=== PATIENT | female | born 1995 | race African-American/Black ===

== ENCOUNTER 2018-06-22 09:51 | Emergency (ER) | payer SELFPAY ==
[2018-06-22 09:58] VITALS: BMI 40.7
[2018-06-22] MEDS ORDERED: SODIUM CHLORIDE 1,000 ML IV STA ×2 (10:54→14:22)
[2018-06-22] MEDS ORDERED: ONDANSETRON 4 MG/2 ML VIAL IVPUSH ONE (10:54)
--- NOTE | 2018-06-22 12:15 | PDOC ---
History of Present Illness - General History Source: Patient Exam Limitations: No Limitations - History of Present Illness Travel History: No Initial Comments: 06/22/18 12:05 23 y/o female presents to the ED with c/o n/v and poor solid intake x 4 days. Pt states is approx 6 weeks based on LMP. pt states had test done in office 2 weeks ago and has her 1st physician appt next monday. pt states has not had an ultrasound yet and now states has had lower abd cramping since this am, which prompted her to come to the ED. Pt denies urinary complaints, back pain, vag discharge or bleeding. Pt denies weakness, headache, or dizziness. Timing/Duration: reports: getting worse Quality: reports: mild, cramping Abdominal Pain Onset Location: reports: suprapubic Pain Radiation: reports: no radiation Activities at Onset: reports: none Aggravating Factors: improves with: None Alleviating Factors: improves with: None <Cait Mederos - Last Filed: 06/22/18 14:42> <Josette Phillip - Last Filed: 06/22/18 15:29> - General Chief Complaint: Nausea/Vomiting Stated Complaint: VOMITITNG 5WKS PG Time Seen by Provider: 06/22/18 10:34 Past History - Travel Traveled outside of the country in the last 30 days: No Close contact w/someone who was outside of country & ill: No - Past Medical History COPD: No - Immunization History Immunization Up to Date: Yes - Suicide/Smoking/Psychosocial Hx Smoking History: Never smoked Hx Alcohol Use: No Drug/Substance Use Hx: No Patient Lives Alone: No Lives with/in: parents <Cait Mederos - Last Filed: 06/22/18 14:42> <Josette Phillip - Last Filed: 06/22/18 15:29> - Past Medical History Allergies/Adverse Reactions: Allergies Allergy/AdvReac Type Severity Reaction Status Date / Time No Known Allergies Allergy Verified 06/22/18 09:54 Home Medications: Ambulatory Orders Cephalexin [Keflex] 500 mg PO BID #14 capsule 06/22/18 Ondansetron HCl [Zofran] 4 mg PO TID PRN #12 tablet 06/22/18 Review of Systems - Review of Systems Able to Perform ROS?: No Is the patient limited [place] proficient: No Constitutional: Yes: Loss of Appetite HEENTM: No: Symptoms Reported Respiratory: No: Symptoms reported Cardiac (ROS): No: Symptoms Reported ABD/GI: Yes: Nausea, Poor Appetite, Vomiting, Abdominal cramping. No: Indigestion : No: Symptoms Reported Musculoskeletal: No: Symptoms Reported Integumentary: No: Symptoms Reported Neurological: No: Symptoms reported <Cait Mederos - Last Filed: 06/22/18 14:42> *Physical Exam - Vital Signs Last Vital Signs Temp Pulse Resp BP Pulse Ox 98.5 F 58 L 18 129/80 97 06/22/18 09:54 06/22/18 09:54 06/22/18 09:54 06/22/18 09:54 06/22/18 09:54 - Physical Exam General Appearance: Yes: Nourished, Appropriately Dressed. No: Apparent Distress HEENT: positive: EOMI, CORTES, Pharynx Normal (dry appearing). negative: Pale Conjunctivae Neck: positive: Supple Respiratory/Chest: positive: Lungs Clear, Normal Breath Sounds. negative: Respiratory Distress, Accessory Muscle Use Cardiovascular: positive: Regular Rhythm, Regular Rate. negative: Murmur Female Pelvic Exam: positive: normal external exam (no discharge/bleeding) Gastrointestinal/Abdominal: positive: Soft, Tenderness (mild midsuprapubic) Musculoskeletal: negative: Normal Inspection Extremity: positive: Normal Capillary Refill Integumentary: positive: Normal Color, Warm, Moist Neurologic: positive: Normal Mood/Affect, Motor Strength 5/5 (ambulatory) <Cait Mederos - Last Filed: 06/22/18 14:42> - Vital Signs Last Vital Signs Temp Pulse Resp BP Pulse Ox 98.5 F 58 L 18 129/80 97 06/22/18 09:54 06/22/18 09:54 06/22/18 09:54 06/22/18 09:54 06/22/18 09:54 <Josette Phillip - Last Filed: 06/22/18 15:29> ED Treatment Course - LABORATORY CBC & Chemistry Diagram: 06/22/18 12:58 06/22/18 12:58 - RADIOLOGY Radiology Studies Ordered: Category Date Time Status <14WKS US [US] Stat Ultrasound 06/22/18 11:03 Ordered <Cait Mederos - Last Filed: 06/22/18 14:42> - LABORATORY CBC & Chemistry Diagram: 06/22/18 12:58 06/22/18 12:58 - ADDITIONAL ORDERS Additional order review: Laboratory Results 06/22/18 06/22/18 12:58 12:58 Sodium 134 L Potassium 3.2 L Chloride 96 L Carbon Dioxide 26 Anion Gap 12 BUN 9 Creatinine 0.7 Creat Clearance w eGFR 104.64 Random Glucose 86 Calcium 9.5 Magnesium 2.3 Total Bilirubin 0.8 AST 10 L ALT 15 Alkaline Phosphatase 75 Total Protein 7.6 Albumin 3.7 Lipase 77 Urine Color Yellow Urine Appearance Cloudy Urine pH 6.0 Ur Specific [place] 1.017 Urine Protein Negative Urine Glucose (UA) Negative Urine Ketones Trace H Urine Blood Negative Urine Nitrite Negative Urine Bilirubin Negative Urine Urobilinogen 1.0 Ur Leukocyte Esterase 2+ H Urine WBC (Auto) 13 Urine RBC (Auto) 3 Urine Casts (Auto) 12 U Epithel Cells (Auto) 8.5 Urine Bacteria (Auto) 333.3 06/22/18 12:58 RBC 4.77 MCV 78.7 L MCHC 33.7 RDW 14.6 MPV 8.6 Neutrophils % 69.1 Lymphocytes % 20.7 Monocytes % 9.5 Eosinophils % 0.4 Basophils % 0.3 - Medications Given in the ED: ED Medications Discontinued Medications Generic Name Dose Route Start Last Admin Trade Name Freq PRN Reason Stop Dose Admin Sodium Chloride 1,000 mls @ 1,000 mls/hr 06/22/18 10:54 06/22/18 13:04 Normal Saline - IV 06/22/18 11:53 1,000 mls/hr ASDIR STA Administration Sodium Chloride 1,000 mls @ 1,000 mls/hr 06/22/18 14:22 06/22/18 14:37 Normal Saline - IV 06/22/18 15:21 1,000 mls/hr ASDIR STA Administration Ondansetron HCl 4 mg 06/22/18 10:54 06/22/18 13:04 Zofran Injection IVPUSH 06/22/18 10:55 4 mg ONCE ONE Administration Potassium Chloride 40 meq 06/22/18 14:22 06/22/18 14:37 K-Dur - PO 06/22/18 14:23 40 meq ONCE ONE Administration <Josette Phillip - Last Filed: 06/22/18 15:29> Medical Decision Making - Medical Decision Making 06/22/18 11:20 CC: lower abd cramping, n/v, poor solid intake Exam: midsuprapubic tenderness, appears dry Plan: labs, urine, ivf, zofran , and U/s 06/22/18 14:40 Laboratory Tests 06/22/18 06/22/18 06/22/18 12:58 12:58 12:58 WBC 9.8 Hgb 12.6 Hct 37.6 Neutrophils % 69.1 Sodium 134 L Potassium 3.2 L Chloride 96 L Carbon Dioxide 26 Anion Gap 12 BUN 9 Creatinine 0.7 Random Glucose 86 Magnesium 2.3 Lipase 77 Urine Ketones Trace H Urine Nitrite Negative Ur Leukocyte Esterase 2+ H Urine WBC (Auto) 13 Pt ordered for 2nd ltr of IVF, given k-dur, tolerated a lunch tray and states nausea has resided. U/s shows 7 weeks 4 days with fhr at 168. + UTI. u cx sent. will dc home with keflex and zofran <Cait Mederos - Last Filed: 06/22/18 14:42> - Medical Decision Making The patient was seen and evaluated in conjunction with midlevel provider under my direct supervision, ancillary studies were reviewed. I agree with the plan as outlined [employer]. HPI, workup/dispo as outlined. VS reviewed, wnl. potassium repleted. UTI on UA, keflex course. antiemetic, hydration and symptpom control. sono with live IUP c/w dates. DC with ob followup 06/22/18 15:28 <Josette Phillip - Last Filed: 06/22/18 15:29> *DC/Admit/Observation/Transfer <Cait Mederos - Last Filed: 06/22/18 14:42> <Josette Phillip - Last Filed: 06/22/18 15:29> Diagnosis at time of Disposition: UTI (urinary tract infection), Hyperemesis gravidarum - Discharge Dispostion Disposition: HOME Condition at time of disposition: Improved - Prescriptions Prescriptions: Cephalexin [Keflex] 500 mg PO BID #14 capsule Ondansetron HCl [Zofran] 4 mg PO TID PRN #12 tablet PRN Reason: Nausea And/Or Vomiting - Referrals Referrals: Aryan Bryant MD [Primary Care Provider] - - Patient Instructions Printed Discharge Instructions: DI for Urinary Tract Infection (UTI), DI for Hyperemesis Gravidarum Additional Instructions: Take antibiotic as prescribed. Use zofran as needed for nausea. Eat bland foods frequently in small amounts - Post Discharge Activity
[2018-06-22] MEDS ORDERED: ONDANSETRON 4 MG/2 ML VIAL ONE ×2 (12:29→12:48)
[2018-06-22 13:32] LABS: BASO % 0.3 % (0-2.0); EOS % 0.4 % (0-4.5); HEMATOCRIT 37.6 % (32.4-45.2); HEMOGLOBIN 12.6 GM/dL (10.7-15.3); LYMPH % 20.7 % (8-40); MCH 26.5 pg (25.7-33.7); MCHC 33.7 g/dl (32.0-36.0); MEAN CELL VOLUME 78.7 fl (80-96); MEAN PLT VOLUME 8.6 fl (7.5-11.1); MONO % 9.5 % (3.8-10.2); NEUT % 69.1 % (42.8-82.8); PLATELET COUNT 318 K/MM3 (134-434); RBC 4.77 M/mm3 (3.60-5.2); RDW 14.6 % (11.6-15.6); WHITE BLOOD COUNT 9.8 K/mm3 (4.0-10.0)
[2018-06-22 13:41] LABS: EPI CELLS 8.5 /HPF (0-5/HPF); URINE APPEARANCE CLOUDY; URINE BACTERIA 333.3 /hpf (NEGATIVE); URINE BILIRUBIN NEGATIVE (NEGATIVE); URINE CASTS 12 /lpf (0-8); URINE COLOR YELLOW; URINE GLUCOSE (UA) NEGATIVE (NEGATIVE); URINE KETONE TRACE (NEGATIVE); URINE LEUK ESTERASE 2+ (NEGATIVE); URINE NITRITE NEGATIVE (NEGATIVE); URINE PROTEIN NEGATIVE (NEGATIVE); URINE RBC 3 /hpf (0-4); URINE WBC 13 /hpf (0-5)
[2018-06-22 13:59] LABS: ALBUMIN 3.7 g/dl (3.4-5.0); ALK PHOS 75 U/L (45-117); ANION GAP 12 MMOL/L (8-16); BILIRUBIN,TOTAL 0.8 mg/dL (0.2-1); BLOOD UREA NITROGEN 9 mg/dL (7-18); CALCIUM 9.5 mg/dL (8.5-10.1); CHLORIDE 96 mmol/L (98-107); CO2 26 mmol/L (21-32); CREATININE 0.7 mg/dL (0.55-1.3); GLUCOSE,RANDOM 86 mg/dL (74-106); LIPASE 77 U/L (73-393); MAGNESIUM 2.3 mg/dL (1.8-2.4); POTASSIUM 3.2 mmol/L (3.5-5.1); SGOT/AST 10 U/L (15-37); SGPT/ALT 15 U/L (13-61); SODIUM 134 mmol/L (136-145); TOT PROT 7.6 g/dl (6.4-8.2)
[2018-06-22] MEDS ORDERED: POTASSIUM CHLORIDE TABS 20 MEQ TABLET.ER (FP) PO ONE ×2 (14:22→14:34)
[2018-06-22 15:49] VITALS: BP 124/72; PULSE 68; TEMP 98.1
== END 2018-06-22 15:49 | disposition home or self-care (01) ==
LOC: JER 09:51
PROC: 3E033GC Introduction of Other Therapeutic Substance into Peripheral Vein, Percutaneous Approach (ICD-10-PCS; principal; 2018-06-22)
PROC: 3E0337Z Introduction of Electrolytic and Water Balance Substance into Peripheral Vein, Percutaneous Approach (ICD-10-PCS; 2018-06-22)
DX: O26.891 Other specified pregnancy related conditions, first trimester (principal); Z3A.01 Less than 8 weeks gestation of pregnancy; N39.0 Urinary tract infection, site not specified; O21.0 Mild hyperemesis gravidarum
CPT/HCPCS: 36415; 76801-TC; 80053; 81003; 83690; 83735; 85025; 99281-25; J7030